=== PATIENT | male | born 1955 | race Two or more races ===

== ENCOUNTER 2024-08-24 07:17 | Day surgery (SDC) | payer OTHER ==
[~2024-08-24] VITALS: Ht 182.9 cm; Wt 113.4 kg
[~2024-08-24 07:17] MED LIST: ALLO300T2 PO; AML5T PO; ASPI-543 PO; ATOR20TA50 PO; B-COCAP34 OR; CETI-195 PO; CHOL20004 PO; COLCPOW2 PO; DORZ2SOL18 EACHEYE; DOXY100C4 PO; FERR1TAB36 PO; FURO40TA4 PO; GARL400T2 PO; IBUP200C3 PO; LATA0.008 EACHEYE; LOSA-533 PO; MAGN1CAP PO; METH5TAB98 PO; MULT-608 OR; OMEG-20 PO; ZINC50TA7 PO
[2024-08-24] MEDS ORDERED: ceFAZolin 2 GM/D5W100ml 100 ML IV ONE (07:26)
[2024-08-24] MEDS ORDERED: TOBRAMYCIN PER PHARMACY 0 ML IV SCH (08:15)
[2024-08-24] MEDS ORDERED: fentaNYL CITRATE 100 MCG/2 ML VL ONE ×2 (08:25→08:52)
[2024-08-24] MEDS ORDERED: PROPOFOL 10 MG/ML 20 ML IV ONE (08:26)
[2024-08-24] MEDS ORDERED: ONDANSETRON HCL 4 MG/2 ML VIAL ONE (08:53)
[2024-08-24] MEDS ORDERED: ePHEDrine SULFATE 50 MG/ML AMP ONE (08:58)
[2024-08-24] MEDS ORDERED: ROPIVACAINE 0.5% (5MG/ML) 20ML AMPULE IJ ONE (09:11)
[2024-08-24] MEDS ORDERED: TOBRAMYCIN SULFATE 40 MG/ML 2ML VIAL IV SCH (10:00)
[2024-08-24 10:28] VITALS: TEMP 98
[2024-08-24] MEDS ORDERED: ACETAMINOPHEN IV 1000 MG/100ML (10MG/ML) IV PRN (10:45)
[2024-08-24] MEDS ORDERED: TOBRAMYCIN SULFATE 40 MG/ML 2ML VIAL IV ONE (11:00)
[2024-08-24] MEDS: HYDROmorphone HCL 2 MG/ML VL/or syr IV PRN (11:11)
[2024-08-24] MEDS: ONDANSETRON HCL 4 MG/2 ML VIAL IV ONE (11:14)
[2024-08-24 11:50] VITALS: BP 130/66; PULSE 59; RESP 11; O2SAT 95
--- NOTE | 2024-08-24 15:18 | DVH ---
C-ARM FLUOROSCOPY: PROCEDURE: Left knee hardware removal FLUOROSCOPY TIME: 1.9 seconds DAP: 0.11 mgy FINDINGS: Spot intraoperative C arm radiographs demonstrating left knee hardware removal. IMPRESSION: Please refer to surgical report for detailed findings.
--- NOTE | 2024-08-26 16:12 | DVHOP2 ---
Operative Report - 2 Report Details Date: 08/24/24 Preop Diagnosis: Infected left patella hardware Postop Diagnosis: as above Surgeon: Connor Washington MD Overhead Distribution Engineer: Riaz SHARP Anesthesiologist: Zakiya DAS Anesthesia: General Consent: The patient was informed of the risks and benefits of the procedure. These incl ude but are not limited to complications of anesthesia, postoperative infection, incomplete relief of symptoms, recurrence of symptoms, damage to blood vessels, nerves and tendons, deep venous thrombosis, pulmonary embolism and possible need for repeat surgery in the future. Estimated Blood Loss: 5 cc Findings: Culture x 3 Indications for Surgery: infected left patella from 4 years ago done at [facility] Name of Procedure Performed Irrigation and debridement of left knee, left patella hardware removal Procedure Details Procedure Details: After the induction of anesthesia, time-out was carried out to verify patient, procedure to be done, and site to be operated on. The patient was cleared medically prior to surgery. The patient had a tourniquet applied to the proximal portion of the left lower extremity. The extremity was scrubbed, prepped, and draped in a sterile manner. The patient was given Keflex IV before the tourniquet was elevated, at 250 mmHg. A longitudinal prepatellar incision was made utilizing previous incision and overlying the abscess. A significant amount of purlence was evacuated, and pulse lavage irrigation was used to clean out the remainder of tissue. Necrotic tissue debrided of skin and fat. Tendon was all viable. Suture and multiple plates and screws removed undero fluoro. There were two screws/wire inside bone that we did not remove due to the damage it would have caused. Tendon and patella moved as one without any injury. Wound irrigated with aricept. Vanco beads placed in wound. Wound then closed with 0-monocryl followed by 3-0 nylon. The patient was placed in a fresh new knee immobilizer and brought from the operating room in stable condition. Condition Fair Disposition Home CONNOR WASHINGTON MD Aug 26, 2024 16:12
== END 2024-08-24 12:15 | disposition home or self-care (01) ==
LOC: SUR 07:17
PROVIDERS: ATTEND Orthopaedic Surgery Adult Reconstructive Orthopaedic Surgery
DX: T84.84XA Pain due to internal orthopedic prosthetic devices, implants and grafts, initial encounter (principal); T84.54XA Infection and inflammatory reaction due to internal left knee prosthesis, initial encounter; I12.9 Hypertensive chronic kidney disease with stage 1 through stage 4 chronic kidney disease, or unspecified chronic kidney disease; E11.22 Type 2 diabetes mellitus with diabetic chronic kidney disease; N18.4 Chronic kidney disease, stage 4 (severe); E03.9 Hypothyroidism, unspecified; M10.9 Gout, unspecified; E78.5 Hyperlipidemia, unspecified; J44.89 Other specified chronic obstructive pulmonary disease; Z98.41 Cataract extraction status, right eye; Z98.42 Cataract extraction status, left eye; Z98.890 Other specified postprocedural states; Z79.82 Long term (current) use of aspirin; Z79.899 Other long term (current) drug therapy; Y83.8 Other surgical procedures as the cause of abnormal reaction of the patient, or of later complication, without mention of misadventure at the time of the procedure
CPT/HCPCS: 20680; 73560; 82962; 87070; 87075; 87076; 87077; 87186; 87205; C1713; J1171; J2405; J2704; J3010; J3260; 76000